=== PATIENT | female | born 1955 | race Caucasian/White ===

== ENCOUNTER 2025-05-18 07:56 | Day surgery (SDC) | payer MEDICARE ==
[2025-05-18 08:49] LABS: IMMATURE GRANULOCYTE ABSOLUTE 0.07 K/uL (0-1); NUCLEATED RED BLOOD CELLS 0.0 % (0.0-0.19); PLATELET COUNT (AUTO) 287 K/uL (130-400); RED BLOOD CELL COUNT(AUTO) 5.12 MIL/uL (4.00-5.50); RED CELL DISTRIBUTION WIDTH 13.2 % (11.0-15.5); WHITE BLOOD COUNT (AUTO) 9.2 K/uL (4.8-10.8)
[2025-05-18 09:01] LABS: INR 1.0 (0.85-1.15)
[2025-05-18 09:07] LABS: ASPARTATE AMINOTRANSFERASE 18.0 U/L (10-37); CREATININE 1.2 mg/dL (0.5-1.0); GLOMERULAR FILTR. RATE CALC 49.0 mL/min (>90); GLUCOSE,RANDOM 96.0 mg/dL (70-105); SODIUM SERUM 143.0 mmol/L (136-145); TOTAL PROTEIN, SERUM 7.5 g/dL (6.0-8.3); UREA NITROGEN, BLOOD 21.0 mg/dL (7-18)
[2025-05-18] MEDS: 0.9%NACL 1000ML 1,000 ML IV SCH (10:16)
[2025-05-18] MEDS ORDERED: MIDAZOLAM HCL 1 MG/ML 2ML VIAL ONE (11:55)
--- NOTE | 2025-05-18 12:40 | NUR ---
CT GD LIVER BX PROCEDURE PERFORMED BY DR Marion SUÁREZ. PUNCTURE SITE RT MID ABDOMEN AND PATIENT TOLERATED PROCEDURE WELL. SPECIMEN X3 COLLECTED AND SENT TO LAB. END OF PROCEDURE AT 1220. BIOPSY NEEDLE REMOVED AND DRESSING APPLIED. NO BLEEDING NOTED. REPORT GIVEN TO EMERALD RAMESH AND PATIENT TRANSPORTED TO DAY PATIENT VIA BED AT 1240. AAO X3 WITH NO C/O PAIN.
[2025-05-18 12:50] VITALS: BP 147/74; PULSE 71; RESP 13; TEMP 97.9
[2025-05-18 13:05] VITALS: BP 144/70; PULSE 70; RESP 15
[2025-05-18 13:30] VITALS: BP 148/68; PULSE 68; RESP 14
--- NOTE | 2025-05-18 13:36 | NUR ---
Full and complete discharge instructions given to Patient and Family both verbally and in writing. Explained Surgical procedure precautions and follow up. Liver Biopsy site clean dry and intact. No evidence of bleeding, small amount of bruising and no hematoma. All questions answered. PIV removed with catheter tip intact. Family at bedside appearing supportive. W/C to POV with Family to home
--- NOTE | 2025-05-18 13:45 | HMCIMG ---
CT BX LIVER NDL PERC IR HISTORY: LT HEPATIC NODULE TECHNIQUE: Images from prior studies reviewed. Informed consent was obtained after explaining the procedure and potential complications to the patient. Time out performed. Patient was placed supine on the CT couch and the right upper abdomen was prepped and draped in sterile fashion. Maximum protection barriers including sterile gown, gloves and mask were utilized. Local anesthesia was applied and under CT guidance, a needle introducer was advanced through the abdominal wall and into a mass. 18-gauge Bard sheath was introduced. Then, 3 passes were made with an 18-gauge Bard gun with coaxial technique.. Follow up CT demonstrated no bleed identified.. Sterile dressing applied. Completion images reveal no hemorrhage. Patient tolerated the procedure well and was discharged from the department in good condition. Sample sent to pathology in formalin. Conscious sedation provided by a registered nurse who monitored the patient's vital signs throughout and after the procedure. Blood loss:< 5 mL Complications: None Medications: Fentanyl 100 mcg IV and Versed 1 mg IV IMPRESSION: Successful CT-guided core biopsy of hepatic mass.
== END 2025-05-18 13:45 | disposition home or self-care (01) ==
LOC: RAH 07:56 → EDSTATUS 09:00 → RAH 13:45
PROVIDERS: ATTEND Internal Medicine Hematology & Oncology
DX: C78.7 Secondary malignant neoplasm of liver and intrahepatic bile duct (principal); C34.90 Malignant neoplasm of unspecified part of unspecified bronchus or lung; E78.5 Hyperlipidemia, unspecified; I10 Essential (primary) hypertension; J44.9 Chronic obstructive pulmonary disease, unspecified; G47.9 Sleep disorder, unspecified; Z88.0 Allergy status to penicillin; Z88.1 Allergy status to other antibiotic agents; Z87.891 Personal history of nicotine dependence; Z90.710 Acquired absence of both cervix and uterus; Z90.49 Acquired absence of other specified parts of digestive tract; Z98.890 Other specified postprocedural states; Z98.84 Bariatric surgery status; Z96.642 Presence of left artificial hip joint; Z86.73 Personal history of transient ischemic attack (TIA), and cerebral infarction without residual deficits; Z79.899 Other long term (current) drug therapy
CPT/HCPCS: 47000; 80053; 85025; 85610; 85730; 36415; 88307; 88342; 77012; 99152; 99153; 88341; J3010; J2250; A4215 ×2; A4222; A4221; A4663; A4216; A4606; A4223 ×3; G0500